=== PATIENT | male | born 1985 | race African-American/Black ===

== ENCOUNTER 2019-02-26 20:03 | Emergency (ER) | payer OTHER ==
--- NOTE | 2019-02-26 20:20 | PDOC ---
Rapid Medical Evaluation Time Seen by Provider: 02/26/19 20:18 Medical Evaluation: 02/26/19 20:18 Pt c/o: used a OTC fungal cream for fungal rash to scalp. the cream seeped down to face and now with itchy bumps to forehead and around upper face/ears Pt on brief exam: noted raised papules to forehead, cheeks and upper ears Pt ordered for: none Pt to proceed to the ED Discharge Disposition - Diagnosis Rash - Referrals - Patient Instructions - Post Discharge Activity
[2019-02-26 20:21] VITALS: BP 146/83; PULSE 70; TEMP 98.1; BMI 21.1
--- NOTE | 2019-02-26 21:12 | PDOC ---
History of Present Illness - General Chief Complaint: Rash Stated Complaint: SKIN IRRITATION Time Seen by Provider: 02/26/19 20:18 - History of Present Illness Initial Comments: 02/26/19 21:10 33-year-old male without comorbidities presents for evaluation of facial rash x5 days. He states he started with a scalp fungal infection he use an over-the- counter remedy which helped the scalp however he feels may be during the process of rinsing his hair he may have irritated his face. No systemic symptoms Past History - Past Medical History Allergies/Adverse Reactions: Allergies Allergy/AdvReac Type Severity Reaction Status Date / Time No Known Allergies Allergy Verified 02/26/19 20:21 Home Medications: Ambulatory Orders Mupirocin Ointment [Bactroban 2% Ointment -] 1 applic TP BID #1 applic 02/26/19 Nystatin Ointment [Mycostatin Ointment -] 1 applic TP BID #1 applic 02/26/19 COPD: No - Psycho Social/Smoking Cessation Hx Smoking History: Never smoked Review of Systems - Review of Systems Integumentary: Yes: Rash *Physical Exam - Vital Signs Last Vital Signs Temp Pulse Resp BP Pulse Ox 98.1 F 70 18 146/83 99 02/26/19 20:18 02/26/19 20:18 02/26/19 20:18 02/26/19 20:18 02/26/19 20:18 - Physical Exam Comments: 02/26/19 21:10 There are raised circular areas with a crusted center there are also excoriated areas with a yellow crusted center across his face starting from his right ear going towards his hairline across his forehead down to his other ear. There does not appear to be indication of secondary infection Medical Decision Making - Medical Decision Making 02/26/19 21:11 I am unclear whether this rash is fungal or bacterial this may be impetigo versus a fungal infection I will treat him with Bactroban and nystatin with close dermatology follow-up. Patient is in agreement with the plan. Discharge - Discharge Information Problems reviewed: Yes Clinical Impression/Diagnosis: Rash Condition: Stable Disposition: HOME - Admission No - Additional Discharge Information Prescriptions: Mupirocin Ointment [Bactroban 2% Ointment -] 1 applic TP BID #1 applic Nystatin Ointment [Mycostatin Ointment -] 1 applic TP BID #1 applic - Follow up/Referral Referrals: ON STAFF,NOT [Primary Care Provider] - Freda Henriquez MD [Staff Physician] - - Patient Discharge Instructions Additional Instructions: Please use the creams as directed return to the emergency room for worsening symptoms and without fail please follow-up with dermatology in 1 to 2 days for further evaluation and treatment options. This rash may be contagious please take contact precautions and frequent handwashing. - Post Discharge Activity
== END 2019-02-26 21:23 | disposition home or self-care (01) ==
LOC: JERFT 20:03
DX: L01.09 Other impetigo (principal)
CPT/HCPCS: 99281-25